=== PATIENT | female | born 1965 ===

== ENCOUNTER 2021-09-07 09:57 | Outpatient (CLI) | payer MEDICAID ==
[2021-09-07 12:24] LABS: Basophils % (Auto) 0.6 % (0.0-1.8); Eosinophils # (Auto) 0.1 K/mm3 (0.0-0.4); Eosinophils % (Auto) 1.7 % (0.0-4.3); Hemoglobin 12.6 gm/dl (10.1-14.3); Lymphocytes # (Auto) 1.4 K/mm3 (1.2-5.4); Mean Corpuscular HGB Conc 33 % (30-34); Mean Corpuscular Volume 92 fl (79-97); Monocytes # (Auto) 0.4 K/mm3 (0.0-0.8); Platelet Count 227 K/mm3 (140-440); Red Blood Count 4.12 M/mm3 (3.65-5.03)
[2021-09-07 12:33] LABS: Alanine Aminotransferase 13 units/L (7-56); Albumin 4.3 g/dL (3.9-5); Blood Urea Nitrogen 19 mg/dL (7-17); Calcium 9.7 mg/dL (8.4-10.2); Chol/HDL Ratio 2.46 %; HDL Cholesterol 89 mg/dL (40-59); Hemolysis Index 10; LDL Cholesterol,Direct 130 mg/dL (50-130)
[2021-09-07 12:35] LABS: BUN/Creatinine Ratio 27
== END 2021-09-07 09:58 | disposition home or self-care (01) ==
LOC: LABHHL 09:57
PROVIDERS: ATTEND Internal Medicine
DX: Z00.00 Encounter for general adult medical examination without abnormal findings (principal); E66.9 Obesity, unspecified; R53.83 Other fatigue; E55.9 Vitamin D deficiency, unspecified
CPT/HCPCS: 36415; 80053; 80061; 82306; 84443; 85025